=== PATIENT | male | born 1965 | race Caucasian/White ===

== ENCOUNTER 2019-08-01 14:18 | Outpatient (CLI) | payer OTHER ==
--- NOTE | 2019-08-01 15:09 | ULT ---
TESTICULAR ULTRASOUND: INDICATIONS: Testicular pain. FINDINGS: Both testicles have a normal sonographic appearance. Color Doppler with spectral analysis demonstrate s normal and equal blood flow to both testicles. There are tiny bilateral hydroceles. There are increased vascular structures seen in the scrotum bilaterally, which increase with Valsalva , consistent with bilateral varicoceles. The varicocele appears larger on the left. Both epididymides appear normal. IMPRESSION: 1. Tiny bilateral hydroceles. 2. Both testicles appear unremarkable. 3. Evidence of bilateral varicoceles, larger on the left. POS: [facility]
== END 2019-08-01 14:19 | disposition home or self-care (01) ==
LOC: BICULT 14:18
PROVIDERS: ATTEND Nurse Practitioner Family
DX: N52.9 Male erectile dysfunction, unspecified (principal); N50.819 Testicular pain, unspecified; I86.1 Scrotal varices; N43.3 Hydrocele, unspecified
CPT/HCPCS: 76870; 93976

== ENCOUNTER 2022-11-12 05:40 | Observation (INO) | payer BC ==
[2022-11-12 06:28] LABS: #Eosinphils 0.3 thou/uL (0.0-0.7); #Lymphocytes 2.4 thou/uL (1.20-3.40); #Monocytes 1.1 thou/uL (0.11-0.59); %Basophils 0.3 % (0.0-1.0); %Eosinophils 2.4 % (0.0-10.0); %Lymphocytes 20.5 % (21.0-51.0); %Monocytes 9.2 % (0.0-10.0); %Neutrophils 67.7 % (42.0-75.0); Hemoglobin 15.9 g/dL (14.0-18.0); Mean Corpuscular HGB CONC 34.6 g/dL (32.0-36.0); Mean Corpuscular Hemoglobin 32.1 pg (27.0-31.0); Mean Corpuscular Volume 92.7 fl (78.0-98.0); Mean Platelet Volume 8.1 fL (7.4-10.4); Platelet Count 219 10x3/uL (130-400); RBC Distribution Width 11.9 % (11.5-14.5); Red Blood Cell (RBC) Count 4.97 mill/uL (4.70-6.10); White Blood Cell (WBC) Count 11.9 10x3/uL (4.8-10.8)
[2022-11-12] MEDS ORDERED: Morphine 4 MG/ML VIAL ONE (06:49)
[2022-11-12] MEDS ORDERED: Ondansetron PF 4 MG/2 ML Vial ONE (06:49)
[2022-11-12 06:51] LABS: ALT (SGPT) 43 U/L (8-55); AST (SGOT) 30 U/L (5-34); Albumin 4.5 g/dL (3.5-5.0); Alkaline Phosphatase 119 U/L (40-110); Anion Gap 15 mmol/L (10-20); BUN (Urea Nitrogen) 16 mg/dL (8.4-25.7); Bilirubin, Total 0.5 mg/dL (0.2-1.2); Calc. Creatinine Clearance 0 mL/min (70-130); Calcium 9.6 mg/dL (7.8-10.44); Carbon Dioxide 24 mmol/L (22-29); Chloride 102 mmol/L (98-107); Estimated GFR 83; Globulin 3.1 g/dL (2.4-3.5); Glucose 148 mg/dL (70-105); Lipase 20 U/L (8-78); Potassium 4.4 mmol/L (3.5-5.1); Protein, Total 7.6 g/dL (6.0-8.3); Sodium 137 mmol/L (136-145)
[2022-11-12 08:00] LABS: SARS-CoV-2 NAA Rapid Test Not Detected (NotDetected)
[2022-11-12] MEDS ORDERED: Aspirin 325 MG TAB PO SCH (08:30)
[2022-11-12] MEDS ORDERED: Aspirin Chewable 81 MG TAB ONE (08:57)
[2022-11-12] MEDS ORDERED: ADENOSINE 60 MG/20 ML VIAL ONE (09:04)
[2022-11-12 09:25] LABS: Magnesium 1.9 mg/dL (1.6-2.6)
[2022-11-12 09:40] LABS: Hemoglobin A1c 6.5 % (4.0-6.0)
[2022-11-12 09:54] LABS: Troponin I Less than 0.010 ng/mL (< 0.028)
[2022-11-12 11:58] VITALS: BMI 32.1
[2022-11-12] MEDS ORDERED: Iopamidol-370 76% 500 ML 1 ML ONE (14:56)
[2022-11-12] MEDS: Acetaminophen 325 MG TAB PO PRN (18:22)
[2022-11-12 18:36] LABS: Troponin I Less than 0.010 ng/mL (< 0.028)
[2022-11-13] MEDS: Acetaminophen 325 MG TAB PO PRN (07:35)
[2022-11-13 08:08] VITALS: BP 139/83; TEMP 98.2
[2022-11-13] MEDS ORDERED: Losartan 25 MG TAB PO SCH (09:00)
[2022-11-13] MEDS ORDERED: Aspirin Chewable 81 MG TAB PO SCH (09:00)
[2022-11-15] MEDS ORDERED: FLU VACC QS2022-23(6MOS UP)/PF 60 MCG/0.5 ML SYRINGE IM ONE (19:45)
== END 2022-11-13 10:50 | disposition home or self-care (01) ==
LOC: ERS 05:40 → 2NO 10:35
PROVIDERS: ADMIT Internal Medicine; ATTEND Internal Medicine
DX: R07.2 Precordial pain (principal); I10 Essential (primary) hypertension; E78.5 Hyperlipidemia, unspecified; Z79.899 Other long term (current) drug therapy; Z20.822 Contact with and (suspected) exposure to COVID-19
CPT/HCPCS: 36415; 71045; 71275; 78452; 80053; 83036; 83690; 83735; 83880; 84443; 84484; 85025; 85379; 93005; 93017; 93306; 94760; 96374; 96375; A9500; G0378; J0153; J2270; J2405; Q9967

== ENCOUNTER 2024-07-29 03:33 | Emergency (ER) | payer BC ==
[2024-07-29] MEDS ORDERED: Ondansetron PF 4 MG/2 ML Vial ONE (03:52)
[2024-07-29] MEDS ORDERED: Ketorolac Tromethamine 30 MG (1 mL) VIAL ONE (03:52)
[2024-07-29] MEDS ORDERED: cefTRIAXone (ROCEPHIN) 2 GM VIAL ONE (04:24)
[2024-07-29 04:36] LABS: #Basophils Less than 0.03 10x3/uL (0.0-0.2); %Basophils 0.1 % (0.0-1.0); %Eosinophils 1.3 % (0.0-10.0); %Monocytes 3.6 % (0.0-10.0); %Neutrophils 91.8 % (42.0-75.0); Hematocrit 46.6 % (42.0-52.0); Hemoglobin 16.1 g/dL (14.0-18.0); Mean Corpuscular HGB CONC 34.5 g/dL (32.0-36.0); Mean Corpuscular Hemoglobin 31.4 pg (27.0-31.0); Mean Corpuscular Volume 90.8 fL (78.0-98.0); Platelet Count 238 10x3/uL (130-400); RBC Distribution Width 12.9 % (11.5-14.5); Red Blood Cell (RBC) Count 5.13 mill/uL (4.70-6.10)
[2024-07-29 04:43] LABS: PTT 27.4 sec (22.9-36.1)
[2024-07-29 04:45] LABS: Troponin I Less than 0.010 ng/mL (< 0.028)
[2024-07-29 04:56] LABS: ALT (SGPT) 48 U/L (8-55); AST (SGOT) 35 U/L (5-34); Albumin 4.1 g/dL (3.5-5.0); Alkaline Phosphatase 103 U/L (40-110); Anion Gap 16 mmol/L (10-20); BUN (Urea Nitrogen) 15 mg/dL (8.4-25.7); Bilirubin, Total 0.7 mg/dL (0.2-1.2); Calc. Creatinine Clearance 0 mL/min (70-130); Carbon Dioxide 21 mmol/L (22-29); Chloride 102 mmol/L (98-107); Estimated GFR 68; Globulin 3.3 g/dL (2.4-3.5); Glucose 151 mg/dL (70-105); Potassium 4.3 mmol/L (3.5-5.1); Protein, Total 7.4 g/dL (6.0-8.3); Sodium 135 mmol/L (136-145)
[2024-07-29 06:23] LABS: Bacteria/HPF None Seen HPF (None Seen); Bilirubin Negative (Negative); Blood, Urine Negative (Negative); CAUTI Indications for Culture Fever or rigors; Clarity Clear (Clear); Glucose, Urine (Dipstick) Normal (Negative); Ketone, Urine Negative (Negative); Leukocyte Negative Leu/uL (Negative); Nitrite Negative (Negative); Protein, Urine (Dipstick) Negative (Neg-Trace); RBC/HPF None Seen HPF (0-3); Specific Gravity, Urine 1.017 (1.002-1.036); Squamous Epithelial None Seen HPF (0-3); Urobilinogen Normal mg/dL (Less than 2); WBC/HPF 0-3 HPF (0-3)
[2024-07-29 06:30] LABS: Urine Culture Reflex No No
[2024-07-29] MEDS ORDERED: Acetaminophen 500 MG TAB ONE (07:22)
[2024-07-29] MEDS ORDERED: Ipratropium/Albuterol 3 ML NEB ONE (07:22)
[2024-07-29] MEDS ORDERED: Iopamidol-370 76% 500 ML MDV (1 ML CHARGE) ONE (11:21)
== END 2024-07-29 10:00 | disposition home or self-care (01) ==
LOC: ERS 03:33
DX: B34.9 Viral infection, unspecified (principal); I10 Essential (primary) hypertension
CPT/HCPCS: 71045; 71275; 80053; 81001; 83605; 83690; 83880; 84145; 84484; 85025; 85610; 85730; 87040; 87428; 93005; 96365; 96366; 96375; J0696; J1885; J2405; J7620; Q9967